=== PATIENT | male | born 1955 | race Caucasian/White ===

== ENCOUNTER → 2017-06-06 | Outpatient (CLI) | payer OTHER ==
[~2017-06-06] MED LIST: NAPR1TAB9 PO; voltaren gel
== END | disposition home or self-care (01) ==
LOC: C.RDSM 19:15
PROVIDERS: ATTEND Orthopaedic Surgery
DX: M25.612 Stiffness of left shoulder, not elsewhere classified (principal); M54.9 Dorsalgia, unspecified

== ENCOUNTER → 2017-06-15 | Outpatient (CLI) | payer OTHER ==
--- NOTE | 2017-06-15 14:11 | DIAGNOSTIC IMAGING REPORT ---
MRI OF THE CERVICAL SPINE WITHOUT IV CONTRAST CLINICAL HISTORY: Left upper extremity radiculopathy. Neck pain. COMPARISON STUDY: Radiographs of the cervical spine dated 06/06/2017. TECHNIQUE: MRI of the cervical spine is performed utilizing various T1 and T2-weighted sequences in the axial and sagittal planes. IV contrast was not administered for this examination. The examination is modestly degraded by motion artifact. FINDINGS: Cervical spine: Marrow signal intensity is heterogeneous. Vertebral body height and alignment are maintained throughout the cervical spine. The atlantodental articulation appears maintained. The spinous processes are intact. Chronic degenerative endplate change with mild endplate edema is seen at C7-T1. Mild degenerative endplate edema is seen at C6-C7. Tiny anterior osteophytes are seen in the lower cervical region. Intervertebral discs: There is degenerative disc desiccation and loss of height seen throughout the cervical spine. Loss of height is moderate at C6-C7 and C7-T1. Spinal cord: The cervical spinal cord is normal in morphology and signal intensity. C2-C3: Unremarkable. C3-C4: A posterior disc osteophyte complex minimally effaces the ventral subarachnoid space. The neural foramina appear clear. C4-C5: A posterior disc osteophyte complex eccentric to the left abuts the ventral cord. Uncovertebral and facet arthropathy causes moderate to severe left and moderate right neural foraminal stenosis. C5-C6: A posterior disc osteophyte complex eccentric to the right abuts the ventral cord. Uncovertebral and facet arthropathy cause mild left neural foraminal stenosis. C6-C7: A posterior disc osteophyte complex eccentric to the right minimally effaces the right aspect of the ventral cord. In conjunction with uncovertebral arthropathy this causes moderate to severe right neural foraminal stenosis. Uncovertebral and facet arthropathy cause minimal left neural foraminal stenosis. C7-T1: Predominantly uncovertebral arthropathy causes mild left-sided neural foraminal stenosis. Soft tissues: The prevertebral and paraspinous soft tissues are normal in appearance. Brain parenchyma: Partially visualized brain parenchyma at the skull base is within normal limits. IMPRESSION: 1. Multilevel cervical spondylosis as above. See discussion for detailed level by level analysis. 2. The cervical spinal cord is normal in morphology and signal intensity. Dictated: 06/15/2017 1:35 PM Transcribed: 06/15/2017 2:10 PM [place] Electronically signed by: Chucky Phillips M.D. 06/15/2017 2:15 PM Dictated Date/Time: 06/15/2017 1:35 PM
== END | disposition home or self-care (01) ==
LOC: C.MRI 12:36
PROVIDERS: ATTEND Orthopaedic Surgery
DX: M47.22 Other spondylosis with radiculopathy, cervical region (principal)

== ENCOUNTER 2017-07-05 17:32 | Emergency (ER) | payer OTHER ==
[~2017-07-05] VITALS: Ht 177.8 cm; Wt 93.0 kg
[2017-07-05 17:37] VITALS: TEMP 36.7; Ht 177.8 cm; Wt 93.0 kg
[2017-07-05] MEDS ORDERED: KETOROLAC TROMETHAMINE 60 MG/2 ML VIAL IM STA (18:13)
--- NOTE | 2017-07-05 19:14 | DIAGNOSTIC IMAGING REPORT ---
CERVICAL SPINE 2 OR 3 VIEWS CLINICAL HISTORY: 61 years-old Male presenting with neck pain with right upper extremity paresthesias. TECHNIQUE: Lateral, open-mouth odontoid, and frontal views of the cervical spine were obtained. COMPARISON: MR from 06/15/2017. FINDINGS: Normal cervical lordosis. Vertebral bodies maintain normal height and alignment. Disc osteophyte complexes noted at C4-5 and C6-7 and C7-T1. No significant posterior bony spurring is evident. No compression deformity or acute subluxation. Lateral masses of C1 articulate normally with C2. Normal predental interval. No prevertebral soft tissue swelling. IMPRESSION: 1. No radiographic evidence of acute osseous injury of the cervical spine. 2. Multilevel degenerative changes. Electronically signed by: Lucio Pearson M.D. 07/05/2017 7:12 PM Dictated Date/Time: 07/05/2017 7:11 PM
[2017-07-05] MEDS ORDERED: FLEXERIL HOME PACK 10 MG VIAL PO STA (19:22)
--- NOTE | 2017-07-05 19:25 | EMERGENCY ROOM VISIT NOTE ---
ED Visit Note First contact with patient: 17:47 CHIEF COMPLAINT: Neck pain radiating down the left arm HISTORY OF PRESENT ILLNESS: This 61-year-old male patient presents to the emergency department, ambulatory, with his , complaining of pain in the neck which is increased and is now radiating down his left arm after completing physical therapy this evening. The patient is currently being followed by orthopedics, and states he has been going to physical therapy. Today, the physical therapist was performing a chin tuck maneuver and pushing on the nerves in his back. He states this maneuver seemed to worsen the pain, and states he is noticing a tingling sensation and three quarters of his upper arm. He states he did have a tingling sensation and was unable to feel his fingers initially. He is now able to feel his fingers and has good sensation, but states he is experiencing a tingling sensation in the fifth digit. He was unable to contact his orthopedic surgeon due to the time of day, but does have plans to contact them tomorrow. The patient did take 2 Aleve at approximately 8 :00 this morning. He has taken no medications since then. The incident occurred at approximately 510 this evening. The physical therapist did recommend he come to the emergency department for evaluation. The patient rates the pain as sharp and 5/10. The patient does have a known history of a "ruptured disc at C5 which is pressing on the nerves "which occurred 3 months ago after a fall on the ice. The patient denies chest pain or shortness of breath. There was no head injury and no loss of consciousness. The patient denies headache, blurred vision, abdominal pain, nausea, or vomiting. The patient denies change in personality. REVIEW OF SYSTEMS: A 10 system review of systems was completed with positives and pertinent negatives listed in the HPI. ALLERGIES: None MEDICATIONS: Aleve PMH: Chronic neck pain, cholecystectomy SOCIAL HISTORY: The patient lives locally with family. He denies drug, alcohol , tobacco use. PHYSICAL EXAM: VITALS: Vitals are noted on the nurse's note and reviewed by myself. Vital signs stable. GENERAL: This is a 61-year-old white male, in no acute distress, nondiaphoretic, well-developed well-nourished. SKIN: Capillary reflex less than 2 seconds. HEENT: Normocephalic. PERRLA. EOMI. Nares patent. Mucous membranes moist. Neck is supple without nuchal rigidity. Cervical spine is mildly tender to palpation in the area of C5 through C7. The patient does have tenderness of the paraspinal muscles on the left. Palpation of the paraspinous muscles on the left does elicit worsening paresthesias of the left arm. There is no lymphadenopathy. MUSCULOSKELETAL: The patient has full range of motion of the bilateral arms. Strength 5/5 of the bilateral upper extremities. The patient has tenderness with rotation left lateral bending of the neck. NEURO: Patient was alert and oriented to person place and time. Normal sensation to light and sharp touch. No focal neurologic deficits. RADIOLOGY: CERVICAL SPINE 2 OR 3 VIEWS CLINICAL HISTORY: 61 years-old Male presenting with neck pain with right upper extremity paresthesias. TECHNIQUE: Lateral, open-mouth odontoid, and frontal views of the cervical spine were obtained. COMPARISON: MR from 06/15/2017. FINDINGS: Normal cervical lordosis. Vertebral bodies maintain normal height and alignment. Disc osteophyte complexes noted at C4-5 and C6-7 and C7-T1. No significant posterior bony spurring is evident. No compression deformity or acute subluxation. Lateral masses of C1 articulate normally with C2. Normal predental interval. No prevertebral soft tissue swelling. IMPRESSION: 1. No radiographic evidence of acute osseous injury of the cervical spine. 2. Multilevel degenerative changes. Electronically signed by: Lucio Pearson M.D. 07/05/2017 7:12 PM Dictated Date/Time: 07/05/2017 7:11 PM EMERGENCY DEPARTMENT COURSE: I examined the patient. His symptoms are consistent with a cervical radiculopathy. I suspect this is associated with his physical therapy and exercises he was performing today. The patient was given 30 mg Toradol IM and noted significant improvement in his pain. He will be given a short course of muscle relaxers to help with ongoing spasms. The patient's states they do have plans to contact the orthopedic surgeon first thing tomorrow morning. The patient is agreeable with discharge at this time. All questions were answered to the patient and his 's satisfaction. Discharge instructions reviewed, the patient was discharged home in good condition. I attest that I have personally reviewed the patient's current medication list. Blood Pressure Screening: Patient was found to have a slightly elevated blood pressure due to circumstances. I do not believe that the patient requires hypertension monitoring. Etiologies such as soft tissue injury, fracture, dislocation, neurovascular compromise, compartment syndrome, as well as others were entertained. DIAGNOSIS: Cervicalgia with radiculopathy The chart was completed utilizing [employer] Speech voice recognition software. Grammatical errors, random word insertions, pronoun errors, and incomplete sentences are an occasional consequence of this system due to software limitations, ambient noise, and hardware issues. Any formal questions or concerns about the content, text, or information contained within the body of this dictation should be directly addressed to the provider for clarification. Current/Historical Medications Scheduled Naproxen (Aleve), 440 MG PO UD Allergies Coded Allergies: No Known Allergies (Unverified , 11/13/16) Uncoded Allergies: NONE (Allergy, Unknown, 03/01/03) Vital Signs Date Time Temp Pulse Resp B/P (MAP) Pulse Ox O2 Delivery O2 Flow Rate FiO2 07/05/17 19:46 75 16 120/74 98 07/05/17 17:37 36.7 65 20 178/90 99 Room Air Medications Administered Medications (Trade) Dose Ordered Sig/Phani Route Start Time Stop Time Status Last Admin Dose Admin Ketorolac Tromethamine (Toradol Inj) 30 mg NOW STAT IM 07/05/17 18:13 07/05/17 18:15 DC 07/05/17 18:44 30 MG Cyclobenzaprine HCl (FLEXERIL 10MG Home Pack) 1 homepack UD STAT PO 07/05/17 19:22 07/05/17 19:23 DC 07/05/17 19:22 1 HOMEPACK Departure Information Impression Primary Impression: Cervical radicular pain Dispostion Home / Self-Care Condition GOOD Forms HOME CARE DOCUMENTATION FORM, IMPORTANT VISIT INFORMATION Patient Instructions ED Neck Back Pain General, [facility], Later [facility] Additional Instructions You have been treated in the Emergency Department for Neck Pain. You have received pain medicine in the emergency department which impairs your ability to operate a vehicle. It is illegal for you to drive after receiving these medicines. You have been prescribed Flexeril (cyclobenzaprine) 1 tabs orally, three times per day. Do NOT exceed 30 mg (3 tabs) per day. Take your first dose at bedtime as it can make you drowsy. Always take all medications as prescribed. For pain control, you can use the following [id number] medicines (if >12 yo): Ibuprofen(Motrin, Advil) may be used for fever or pain. Use 600mg every six hours as needed. Take with food. Avoid using more than 2400mg in a 24 hour period. Do not use 2400mg per day for more than three consecutive days without physician direction. Prolonged inappropriate use can lead to stomach upset or ulcers. You may take naproxen (Aleve) 1-[address] daily [address] of ibuprofen. (AND/OR) Acetaminophen(Tylenol) may be used for fever or pain. Use 1000mg every six hours as needed. Avoid using more than 3000mg in a 24 hour period. If this is an acute injury, ice can be applied to the area of pain for the first 3 days to help decrease pain and inflammation. After the first 3 days, a heating pad can be used over the area for continued soothing relief. You should schedule a follow-up appointment in 2-3 days with your Primary Care Provider/orthopedic surgeon for further evaluation and treatment of your neck pain. Return to the Emergency Department if your current symptoms worsen despite treatment course outlined above, or if you develop any of the following symptoms : intractable pain despite aforementioned treatment course, facial droop, slurred speech, unilateral weakness, or worsening of her current symptoms.
[2017-07-05 19:46] VITALS: BP 120/74; PULSE 75; O2SAT 98
== END 2017-07-05 19:47 | disposition home or self-care (01) ==
LOC: C.EDB 17:33 → C.EDD 19:47
DX: M54.12 Radiculopathy, cervical region (principal)